=== PATIENT | female | born 1955 | race Caucasian/White ===

== ENCOUNTER 2018-03-10 12:26 | Emergency (ER) | payer BC ==
[2018-03-10] MEDS ORDERED: Acetaminophen 325 MG TAB ONE (12:57)
[2018-03-10] MEDS ORDERED: HYDROcodone/Acetaminophen 5/325 mg Tablet ONE (12:57)
[2018-03-10] MEDS ORDERED: Ibuprofen 800 MG TAB ONE (12:57)
--- NOTE | 2018-03-10 14:15 | RAD ---
LEFT WRIST 3 VIEWS: HISTORY: Left wrist injury. FINDINGS: Comminuted impacted fracture of the distal radius is present with minimal posterior displacement of t he major distal fragment and apex volar angulation. There is mild loss of inclination. No definite intraarticular extension. Scaphoid waist and ulnar styloid are intact. IMPRESSION: Comminuted distal left radial fracture with dorsal angulation and loss of inclination. POS: [facility]
== END 2018-03-10 13:45 | disposition home or self-care (01) ==
LOC: MADERS 12:26
DX: S52.502A Unspecified fracture of the lower end of left radius, initial encounter for closed fracture (principal); W19.XXXA Unspecified fall, initial encounter; Y92.009 Unspecified place in unspecified non-institutional (private) residence as the place of occurrence of the external cause
CPT/HCPCS: 29125